=== PATIENT | male | born 1970 | race Caucasian/White ===

== ENCOUNTER 2020-02-11 18:24 | Emergency (ER) | payer OTHER ==
[~2020-02-11] VITALS: Ht 182.9 cm; Wt 83.9 kg
[2020-02-11 18:32] VITALS: Ht 182.9 cm; Wt 83.9 kg
[2020-02-11 19:28] VITALS: BP 157/102
== END 2020-02-11 19:28 | disposition home or self-care (01) ==
LOC: ED 18:24
DX: G89.29 Other chronic pain (principal); M54.5 Low back pain
CPT/HCPCS: J1885